=== PATIENT | male | born 1985 | race African-American/Black ===

== ENCOUNTER 2018-05-03 07:24 | Emergency (ER) | payer OTHER ==
[2018-05-03 07:35] VITALS: BP 129/89
[2018-05-03] MEDS ORDERED: IBUPROFEN 600 MG TABLET PO ONE (07:49)
--- NOTE | 2018-05-03 07:58 | ER Document Report ---
ED Extremity Problem, Lower - General Chief Complaint: Leg Pain Stated Complaint: LEG PAIN Time Seen by Provider: 05/03/18 07:37 TRAVEL OUTSIDE OF THE [place] IN LAST 30 DAYS: No - HPI Patient complains to provider of: Altered sensation, Pain Location: Foot Occurred: Other - 2 months Where: Home Onset/Duration: Gradual, Constant Quality of pain: Burning Severity: Moderate Recent injury: No Exacerbated by: Walking Relieved by: Nothing Notes: Patient is a 33-year-old male that presents to the emergency department for chief complaint of burning pain in bilateral feet. Patient reports constant worsening pain in bilateral feet for the last 2-3 months. He states that sometimes they feel numb. He denies injury or trauma. The pain is worse when he is up ambulating. The pain is improved with rest. He does have a family history of diabetes but denies ever being checked for diabetes. He denies any abdominal pain, nausea, vomiting, headache, dysuria, polyuria and polydipsia. He has not taken any [id number] medication for his symptoms. Past Medical History: Negative Past Surgical History: Negative Social History: Daily tobacco. Occasional alcohol. Denies drug use. Family History: Reviewed and noncontributory for presenting illness Allergies: Reviewed, see documented allergy list. REVIEW OF SYSTEMS: CONSTITUTIONAL : No fever No chills No diaphoresis No recent illness EENT: No vision changes No congestion No sore throat CARDIOVASCULAR: No chest pain No palpitations RESPIRATORY: No shortness of breath No cough No difficulty breathing GASTROINTESTINAL: No abdominal pain No nausea No vomiting No diarrhea GENITOURINARY: No dysuria No hematuria No difficulty urinating MUSCULOSKELETAL: No back pain Bilateral foot pain No arm pain SKIN: No rashes No lesions LYMPHATIC: No swollen, enlarged glands. NEUROLOGICAL: No lightheadedness No headache No weakness No paresthesias PSYCHIATRIC: No anxiety No depression PHYSICAL EXAMINATION: Vital signs reviewed, nursing noted reviewed. GENERAL: Well-appearing, well-nourished and in no acute distress. HEAD: Atraumatic, normocephalic. EYES: Eyes appear normal, extraocular movements intact, sclera anicteric, conjunctiva are normal. ENT: nares patent, oropharynx clear without exudates. Moist mucous membranes. NECK: Normal range of motion, supple without lymphadenopathy LUNGS: Breath sounds clear to auscultation bilaterally and equal. No wheezes rales or rhonchi. HEART: Regular rate and rhythm without murmurs ABDOMEN: Soft, nontender, normoactive bowel sounds. No rebound, guarding, or rigidity. No masses appreciated. EXTREMITIES: Nontender, good range of motion, no pitting or edema. No tenderness to palpation of bilateral ankles or feet. Normal gait. NEUROLOGICAL: Moves all extremities spontaneously Motor. Subjective diffuse decreased sensation to bilateral dorsal and plantar feet PSYCH: Normal mood, normal affect. SKIN: Warm, Dry, normal turgor, no rashes or lesions noted on exposed skin - Related Data Allergies/Adverse Reactions: No Known Allergies Allergy (Verified 05/03/18 07:25) Past Medical History - Social History Smoking Status: Current Every Day Smoker Chew tobacco use (# tins/day): No Frequency of alcohol use: Occasional Drug Abuse: None Family History: Reviewed & Not Pertinent Patient has suicidal ideation: No Patient has homicidal ideation: No Renal/ Medical History: Denies: Hx Peritoneal Dialysis - Immunizations Hx Diphtheria, Pertussis, Tetanus Vaccination: - unknown Review of Systems - Review of Systems Notes: Dictated Physical Exam - Vital signs Vitals: Temp Pulse Resp BP Pulse Ox 98.0 F 85 24 H 129/89 H 98 05/03/18 07:30 05/03/18 07:30 05/03/18 07:30 05/03/18 07:30 05/03/18 07:30 - Notes Notes: Dictated Course - Re-evaluation Re-evalutation: 05/03/18 07:57 Vitals reviewed. Nursing notes reviewed. Accu-Chek obtained to evaluate for undiagnosed diabetes. Patient was given ibuprofen for symptomatic treatment. His symptoms are concerning for peripheral neuropathy. 05/03/18 09:10 Plan of care glucose was 95. Patient was referred to primary care for further evaluation of his symptoms. He will return for new or worsening symptoms. Discharged home in stable condition - Vital Signs Vital signs: Temp Pulse Resp BP Pulse Ox 98.0 F 85 24 H 129/89 H 98 05/03/18 07:30 05/03/18 07:30 05/03/18 07:30 05/03/18 07:30 05/03/18 07:30 Discharge - Discharge Clinical Impression: Peripheral neuropathy Qualifiers: Peripheral neuropathy type: polyneuropathy, unspecified Qualified Code(s): G62.9 - Polyneuropathy, unspecified Condition: Stable Disposition: HOME, SELF-CARE Instructions: Family Physicians / Practices Additional Instructions: Please return to the emergency department if you have any worsening, or concern of your symptoms. Please return to the emergency department if you develop chest pain, difficulty breathing, severe abdominal pain, or ongoing vomiting. Please follow-up with your primary care physician in 2-3 days and any other recommended physicians. If prescribed, take all medications as directed. If you have any questions or concerns do not hesitate to return the emergency department for evaluation. The pain in your feet is likely neuropathy. This is related to irritation of the nerves in your feet. It is important that you follow with your primary care doctor for reevaluation of this problem. Monitor your feet for any open wounds and if you do see any keep them clean and dry because you are at higher risk of infection with neuropathy. Forms: Return to Work
== END 2018-05-03 08:36 | disposition home or self-care (01) ==
LOC: ER 07:24
DX: G62.9 Polyneuropathy, unspecified (principal); F17.200 Nicotine dependence, unspecified, uncomplicated; Z83.3 Family history of diabetes mellitus
CPT/HCPCS: 82962; 99283

== ENCOUNTER 2019-07-05 19:21 | Emergency (ER) | payer OTHER ==
--- NOTE | 2019-07-05 21:03 | ER Document Report ---
ED Medical Screen (RME) - General Chief Complaint: Foot Pain Stated Complaint: LEFT FOOT PAIN Time Seen by Provider: 07/05/19 20:59 Mode of Arrival: Ambulatory Information source: Patient Notes: Patient presents complaining of left foot and lower extremity pain and swelling. Patient states symptoms started about 10 days ago. Patient denies any history of PE or DVT. Patient denies any chest discomfort or shortness of breath. Patient denies any trauma to the leg. 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 I have greeted and performed a rapid initial assessment of this patient. A comprehensive ED assessment and evaluation of the patient, analysis of test results and completion of the medical decision making process will be conducted by additional ED providers. TRAVEL OUTSIDE OF THE [place] IN LAST 30 DAYS: No - Related Data Allergies/Adverse Reactions: No Known Allergies Allergy (Verified 05/03/18 07:25) Past Medical History - Social History Chew tobacco use (# tins/day): No Frequency of alcohol use: Social Drug Abuse: None Renal/ Medical History: Denies: Hx Peritoneal Dialysis - Immunizations Hx Diphtheria, Pertussis, Tetanus Vaccination: - unknown Physical Exam - Vital signs Vitals: Temp Pulse Resp BP Pulse Ox 99 F 90 18 140/78 H 99 07/05/19 19:30 07/05/19 19:30 07/05/19 19:30 07/05/19 19:30 07/05/19 19:30 - General General appearance: Alert Notes: Patient with 3+ edema to left lower extremity with tenderness Course - Vital Signs Vital signs: Temp Pulse Resp BP Pulse Ox 99 F 90 18 140/78 H 99 07/05/19 19:30 07/05/19 19:30 07/05/19 19:30 07/05/19 19:30 07/05/19 19:30
[2019-07-05 22:13] LABS: ABSOLUTE BASOPHILS # (AUTO) 0.1 10^3/uL (0.0-0.2); ABSOLUTE EOSINOPHILS # (AUTO) 0.2 10^3/uL (0.0-0.6); ABSOLUTE LYMPHOCYTES (AUTO) 1.9 10^3/uL (0.5-4.7); ABSOLUTE MONOCYTES (AUTO) 0.6 10^3/uL (0.1-1.4); ABSOLUTE NEUT (AUTO) 4.9 10^3/uL (1.7-8.2); BASOPHILS % (AUTO) 1.1 % (0-2); EOSINOPHILS % (AUTO) 3.2 % (0-6); HEMATOCRIT 44.7 % (37.9-51.0); HEMOGLOBIN 14.8 g/dL (13.5-17.0); LYMPHOCYTES % (AUTO) 24.6 % (13-45); MEAN CORPUSCULAR HEMOGLOBIN 28.2 pg (27.0-33.4); MEAN CORPUSCULAR HGB CONC 33.1 g/dL (32.0-36.0); MEAN CORPUSCULAR VOLUME 85 fl (80-97); MONOCYTES % (AUTO) 7.6 % (3-13); PLATELET COUNT 198 10^3/uL (150-450); RED BLOOD COUNT 5.24 10^6/uL (4.35-5.55); RED CELL DISTRIBUTION WIDTH 14.9 % (11.5-14.0); SEGMENTED NEUTROPHILS % (AUTO) 63.5 % (42-78); TOTAL CELLS COUNTED % (AUTO) 100 %; WHITE BLOOD COUNT 7.7 10^3/uL (4.0-10.5)
[2019-07-05 22:29] LABS: ALBUMIN 4.3 g/dL (3.5-5.0); ALKALINE PHOSPHATASE 81 U/L (38-126); ANION GAP 10 (5-19); ASPARTATE AMINO TRANSFERASE 32 U/L (17-59); BILIRUBIN,DIRECT 0.3 mg/dL (0.0-0.4); BILIRUBIN,TOTAL 1.1 mg/dL (0.2-1.3); BLOOD UREA NITROGEN 17 mg/dL (7-20); CARBON DIOXIDE 29 mmol/L (22-30); CHLORIDE 105 mmol/L (98-107); GLUCOSE 85 mg/dL (75-110); TOTAL PROTEIN 7.5 g/dL (6.3-8.2)
[2019-07-06] MEDS ORDERED: FUROSEMIDE 40 MG TABLET PO ONE (01:16)
[2019-07-06] MEDS ORDERED: POTASSIUM CHLORIDE 10 MEQ TABLET.ER PO ONE (01:16)
--- NOTE | 2019-07-06 01:22 | ER Document Report ---
ED Extremity Problem, Lower - General Chief Complaint: Foot Pain Stated Complaint: LEFT FOOT PAIN Time Seen by Provider: 07/05/19 20:59 Mode of Arrival: Ambulatory Notes: Patient is a 34-year-old male that comes emergency department chief complaint of left foot and left leg swelling. He states it started almost 10 days ago with swelling in the left foot but this has progressed and now most of his lower leg is swollen below the knee. He denies injury, drainage, fever/chills, nausea/vomiting. He denies history of the same. He denies blood clot history. He denies chest pain or shortness of breath. He does smoke, denies any daily medications or diagnosed medical history. 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 He denies family history of DVT. TRAVEL OUTSIDE OF THE [place] IN LAST 30 DAYS: No - Related Data Allergies/Adverse Reactions: No Known Allergies Allergy (Verified 05/03/18 07:25) Past Medical History - General Information source: Patient - Social History Smoking Status: Current Every Day Smoker Chew tobacco use (# tins/day): No Frequency of alcohol use: Social Drug Abuse: None Lives with: Family Family History: Reviewed & Not Pertinent Patient has suicidal ideation: No Patient has homicidal ideation: No Renal/ Medical History: Denies: Hx Peritoneal Dialysis - Immunizations Immunizations up to date: Yes Hx Diphtheria, Pertussis, Tetanus Vaccination: Yes - unknown Review of Systems - Review of Systems Constitutional: No symptoms reported EENT: No symptoms reported Cardiovascular: See HPI Respiratory: No symptoms reported Gastrointestinal: No symptoms reported Genitourinary: No symptoms reported Male Genitourinary: No symptoms reported Musculoskeletal: See HPI Skin: No symptoms reported Hematologic/Lymphatic: No symptoms reported Neurological/Psychological: No symptoms reported Physical Exam - Vital signs Vitals: Temp Pulse Resp BP Pulse Ox 99 F 90 18 140/78 H 99 07/05/19 19:30 07/05/19 19:30 07/05/19 19:30 07/05/19 19:30 07/05/19 19:30 - Notes Notes: GENERAL: Alert, interacts well. No acute distress. HEAD: Normocephalic, atraumatic. EYES: Pupils equal, round, and reactive to light. Extraocular movements intact. ENT: Oral mucosa moist, tongue midline. Oropharynx unremarkable. Airway patent. LUNGS: Clear to auscultation bilaterally, no wheezes, rales, or rhonchi. No respiratory distress. HEART: Regular rate and rhythm. No murmur ABDOMEN: Soft, non-tender. Non-distended. Bowel sounds present in all 4 quadrants. GENITOURINARY: Deferred EXTREMITIES: 2-3+ pitting edema of the left foot all the way up to the proximal tibial area. No erythema, abnormal heat, drainage, or noted tenderness. Distal pulses and sensation are intact. Right lower extremity unremarkable. Extremities otherwise unremarkable. BACK: no cervical, thoracic, lumbar midline tenderness. No saddle anesthesia, normal distal neurovascular exam. Moves all extremities in full range of motion. NEUROLOGICAL: Alert and oriented x3. Normal speech. Cranial nerves II through XII grossly intact. PSYCH: Normal affect, normal mood. SKIN: Warm, dry, normal turgor. No rashes or lesions noted. Course - Re-evaluation Re-evalutation: Left lower extremity does have pitting edema, right seems unremarkable. There is no sign of infection, no erythema, weeping, fever, concerning vital signs. Venous Doppler is negative for DVT. Work-up is unremarkable including potassium and renal functioning. Appears to be lymphedema. I discussed options with patient. Decision was made to proceed with compression stockings which were provided for him, discussed elevation, treatment with diuresis because of the amount of swelling, primary care follow-up, and return precautions. Patient states appreciation and agreement. Stable at time of discharge. - Vital Signs Vital signs: Temp Pulse Resp BP Pulse Ox 98.5 F 88 20 135/78 H 98 07/06/19 01:32 07/06/19 01:32 07/06/19 01:32 07/06/19 01:32 07/06/19 01:32 - Laboratory Result Diagrams: 07/05/19 21:49 07/05/19 21:49 Laboratory results interpreted by me: 07/05/19 21:49 RDW 14.9 H Discharge - Discharge Clinical Impression: Edema of left lower extremity Condition: Stable Disposition: HOME, SELF-CARE Additional Instructions: The ultrasound does not show a blood clot in her leg. This appears to be from venous insufficiency, plaque of blood return from your veins. I recommend you elevate whenever possible, wear compression stockings especially at night and while driving, and take the prescribed diuretic. Follow-up with primary care for additional management. See referral. Return if you worsen including severe worsening pain or swelling, developing redness, fever, difficulty breathing, or any other concerning or worsening symptoms. Prescriptions: Furosemide [Lasix 40 mg Tablet] 40 mg PO DAILY 7 Days #7 tablet Potassium Chloride 10 meq PO DAILY 7 Days #7 tablet.er Forms: Return to Work
[2019-07-06 01:32] VITALS: BP 135/78
--- NOTE | 2019-07-06 09:08 | VASCULAR PRELIM REPORT ---
Provider Note Provider Note: Right Common Femoral and left lower extremity veins, negative for DVT on Duplex imaging.
--- NOTE | 2019-07-06 12:07 | XCELERA REPORT ---
[address] [facility] [id number] Lower Extremity Venous Evaluation Procedure: Color flow and duplex imaging of the veins of the left lower extremity as well as the right Common Femoral vein. Right Sided Venous Evaluation The right common femoral vein is fully compressible. Spontaneous and phasic flow is present in the right common femoral vein. Left Sided Venous Evaluation Normal vessel filling wall to wall, compression and augmentation as well as Colour flow down to the infrageniculate veins. Interpretation Summary No duplex evidence of DVT or obstruction in the left lower extremity nor in the right Common Femoral vein. Name: JANI MAY Age: 34 yrs Gender: Male : 1985 Patient Status: Emergency Patient Location: ER Study Date: 07/05/2019 09:51 PM Reason For Study: LLE pain, swelling Ordering Physician: MAI VAUGHAN Performed By: Arely Watkins : MAI VAUGHAN > Shadi Estevez
== END 2019-07-06 00:20 | disposition home or self-care (01) ==
LOC: ER 19:21
DX: R60.9 Edema, unspecified (principal); M79.672 Pain in left foot; F17.200 Nicotine dependence, unspecified, uncomplicated
CPT/HCPCS: 36415; 80053; 85025; 93971; 99284

== ENCOUNTER 2019-07-12 20:48 | Emergency (ER) | payer SELFPAY ==
--- NOTE | 2019-07-12 21:56 | ER Document Report ---
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 Reports he has had the symptoms since before . He was evaluated here in the emergency department for possible DVT last week. The Doppler was negative for DVT but he was treated with Lasix and potassium for the swelling to the foot. He reports the swelling has gone down but he is still having pain. Denies fever vomiting diarrhea. Denies history of injury to the foot. I have greeted and performed a rapid initial assessment of this patient. A comprehensive ED assessment and evaluation of the patient, analysis of test results and completion of the medical decision making process will be conducted by additional ED providers. TRAVEL OUTSIDE OF THE [place] IN LAST 30 DAYS: No - Related Data Allergies/Adverse Reactions: No Known Allergies Allergy (Verified 05/03/18 07:25) Past Medical History Renal/ Medical History: Denies: Hx Peritoneal Dialysis - Immunizations Immunizations up to date: Yes Hx Diphtheria, Pertussis, Tetanus Vaccination: Yes - unknown Physical Exam - Vital signs Vitals: Temp Pulse Resp BP Pulse Ox 98.1 F 72 16 136/80 H 100 07/12/19 20:55 07/12/19 20:55 07/12/19 20:55 07/12/19 20:55 07/12/19 20:55 Course - Vital Signs Vital signs: Temp Pulse Resp BP Pulse Ox 98.1 F 72 16 136/80 H 100 07/12/19 20:55 07/12/19 20:55 07/12/19 20:55 07/12/19 20:55 07/12/19 20:55
--- NOTE | 2019-07-12 22:58 | RADIOLOGY REPORT (SQ) ---
EXAM DESCRIPTION: XR FOOT 3 OR MORE VIEWS COMPLETED DATE/TME: 07/12/2019 21:54 CLINICAL HISTORY: 34 years, Male, pain swelling COMPARISON: None. NUMBER OF VIEWS: 3 TECHNIQUE: Left LIMITATIONS: None. FINDINGS: Alignment is anatomic. Joint spaces are within normal appearance. Soft tissue swelling IMPRESSION: No acute bony injury to the foot copyright 2010 [employer]- All Rights Reserved
--- NOTE | 2019-07-13 02:05 | ER Document Report ---
ED General - General Chief Complaint: Pedal Edema Stated Complaint: LEFT FOOT SWELLING Time Seen by Provider: 07/12/19 21:50 Mode of Arrival: Ambulatory TRAVEL OUTSIDE OF THE [place] 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 Patient was seen here for basically the same thing 1 week ago and at that time actually had swelling extending up the leg. He had a ultrasound which was negative for DVT. He was sent out with some oral Lasix and says this is helped swelling. He says he still has redness and some swelling over the dorsum of the foot area feels irritated. He denies fever, chills, nausea or vomiting. Patient is not on any regular medications long-term. He has no known allergies. - Related Data Allergies/Adverse Reactions: No Known Allergies Allergy (Verified 05/03/18 07:25) Home Medications: lasix. K+ Past Medical History - General Information source: Patient - Social History Smoking Status: Current Every Day Smoker Chew tobacco use (# tins/day): Yes - Occ Frequency of alcohol use: Social Drug Abuse: None Family History: Reviewed & Not Pertinent Patient has suicidal ideation: No Patient has homicidal ideation: No Renal/ Medical History: Denies: Hx Peritoneal Dialysis - Immunizations Immunizations up to date: Yes Hx Diphtheria, Pertussis, Tetanus Vaccination: Yes - unknown Review of Systems - Review of Systems Notes: Constitutional: Negative for fever. HENT: Negative for sore throat. Eyes: Negative for visual changes. Cardiovascular: Negative for chest pain. Respiratory: Negative for shortness of breath. Gastrointestinal: Negative for abdominal pain, vomiting or diarrhea. Genitourinary: Negative for dysuria. Musculoskeletal: As per HPI. Skin: As per HPI. Neurological: Negative for headaches, weakness or numbness. 10 point ROS negative except as marked above and in HPI. Physical Exam - Vital signs Vitals: Temp Pulse Resp BP Pulse Ox 98.1 F 72 16 136/80 H 100 07/12/19 20:55 07/12/19 20:55 07/12/19 20:55 07/12/19 20:55 07/12/19 20:55 - Notes Notes: GENERAL: Well-developed well-nourished appearing in no acute distress. SKIN: Patient has scaling eruption over the dorsum of both feet left greater than right and very chronic appearing fungal changes of all nails of toes on both feet. He has some mild redness over the dorsal aspect of the left foot. There is no ulceration or drainage. HEAD: Normocephalic atraumatic. EYES: PERRLA. EOMI. Conjunctivae and sclerae clear. EARS: CANALS AND TMS CLEAR. NOSE: CLEAR. MOUTH: Moist mucosa. Good dentition. No stridor or edema. No drooling. NECK: Supple. No masses or thyromegaly. No adenopathy. Carotids 2+ without bruits. No JVD. BACK: Symmetrical without tenderness. CHEST: Respirations unlabored. Breath sounds clear and symmetrical. HEART: Regular rhythm. No murmur gallop or rub. ABDOMEN: Soft nontender without masses, organomegaly or rebound. Bowel sounds normally active. No bruits. GENITALIA: Deferred. EXTREMITIES: Soft tissue swelling and mild tenderness with redness and warmth over the dorsum of the left foot. No calf tenderness. Cap refill less than 1.5 seconds. Dorsalis pedis and posterior tibial pulses 3+ and symmetrical. NEUROLOGICAL: GCS 15. Alert and oriented x3. Normal gait. Fluent speech. Cranial nerves II through XII intact. Sensorimotor and cerebellar normal. Normal tone. PSYCHIATRIC: Appropriate affect. 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 I am going to treat him with some oral griseofulvin and also place him on clindamycin and suggest that he soak the foot in warm salt water. I will give him primary care referral for follow-up. I went back and reviewed his chemistry profile from his prior visit a week ago and his glucose is normal. He has no known history of diabetes. - Vital Signs Vital signs: Temp Pulse Resp BP Pulse Ox 98.1 F 72 16 136/80 H 100 07/12/19 20:55 07/12/19 20:55 07/12/19 20:55 07/12/19 20:55 07/12/19 20:55 Discharge - Discharge Clinical Impression: Cellulitis left foot Tinea pedis Qualifiers: Laterality: bilateral Qualified Code(s): B35.3 - Tinea pedis Condition: Stable Disposition: HOME, SELF-CARE Additional Instructions: Cellulitis You have an infection of your skin and underlying soft tissues called cellulitis. This is due to bacteria, which can enter through any break in the skin, or even through an irritated hair follicle. Untreated, cellulitis will usually worsen. Antibiotics are required. Usually, warm packs or warm soaks, and elevation of the infected area are recommended. You should start getting better within 24 to 36 hours. Most infections respond quickly to the right medication. Follow-up care is important, however, to check for abscess (boil) formation, unsuspected foreign body, or resistant infection. If you develop fever, chills, or if the area of infection is becoming rapidly more swollen or painful, call the doctor at once. Athletes Foot Athlete's foot is a fungus infection of the skin. It typically causes cracking and peeling between the toes. The fungus thrives in a damp, warm environment. You should wash between the toes twice daily with a mild soap (like Phisoderm, Ivory, or Neutrogena). Dry between the toes thoroughly but carefully, and allow to air-dry several minutes. Then apply antifungal medication. If your feet sweat during work or sports, you should put cotton between the toes, changing it every hour or two. Frequent changes of socks are a must, both while the infection is present and afterward. Complete healing may take two or three weeks. Recurrences are common. Keep the spaces between the toes as clean and dry as possible. If increasing swelling and redness develops, if red streaks are seen, or if fever or chilling occur, return immediately for re-evaluation. Return here as needed for new or worsening symptoms: Pain that is worsening or unimproved Uncontrolled vomiting High fever or shaking chills Overall worsening Prescriptions: Clindamycin HCl 300 mg PO TID #30 capsule Griseofulvin Ultramicrosize [Janice-Peg] 250 mg PO TID 30 Days #90 tablet Forms: Return to Work
[2019-07-13 02:20] VITALS: BP 127/87
== END 2019-07-13 02:19 | disposition home or self-care (01) ==
LOC: ER 20:48
DX: L03.116 Cellulitis of left lower limb (principal); B35.3 Tinea pedis; F17.200 Nicotine dependence, unspecified, uncomplicated; Z79.899 Other long term (current) drug therapy
CPT/HCPCS: 99283